=== PATIENT | male | born 1970 | race Caucasian/White ===

== ENCOUNTER 2016-08-24 18:10 | Emergency (ER) | payer BC ==
[~2016-08-24] VITALS: Ht 185.4 cm; Wt 69.7 kg
[2016-08-24 18:13] VITALS: BP 159/86
[2016-08-24] MEDS ORDERED: BACITRACIN OINT 500U/GM, 15 GM TP ONE (19:00)
== END 2016-08-24 19:58 | disposition home or self-care (01) ==
LOC: ED 19:52
DX: S00.81XA Abrasion of other part of head, initial encounter (principal); S40.212A Abrasion of left shoulder, initial encounter; V09.09XA Pedestrian injured in nontraffic accident involving other motor vehicles, initial encounter; Y93.89 Activity, other specified; Y92.89 Other specified places as the place of occurrence of the external cause; Y99.8 Other external cause status
CPT/HCPCS: 70486; 99284